=== PATIENT | female | born 1985 | race Hispanic/Latino ===

== ENCOUNTER 2017-08-26 11:08 | Emergency (ER) | payer OTHER ==
[2017-08-26 11:08] VITALS: BMI 28.7
[2017-08-26 11:13] VITALS: O2SAT 99
[2017-08-26] MEDS ORDERED: Sodium Chloride 0.9% 1,000 ML IV ONE (11:33)
--- NOTE | 2017-08-26 11:49 | C.PDOC ---
History Of Present Illness 32 year old female presents to the ED complaining of dizziness that began today. Of note, patient is currently fasting. States today just prior to arrival , she began to feel very dizzy and came in for further evaluation. Denies any associated syncopal episode or fall. She otherwise denies any nausea, vomiting, chest pain, SOB, weakness, numbness, or lower extremity swelling. Time Seen by Provider: 08/26/17 11:21 Chief Complaint (Nursing): Dizziness/Lightheaded History Per: Patient History/Exam Limitations: no limitations Onset/Duration Of Symptoms: Hrs Current Symptoms Are (Timing): Still Present Past Medical History Reviewed: Historical Data, Nursing Documentation, Vital Signs Vital Signs: Last Vital Signs Temp 97.5 F L 08/26/17 12:58 Pulse 62 08/26/17 12:58 Resp 16 08/26/17 12:58 BP 101/68 08/26/17 12:58 Pulse Ox 99 08/26/17 12:58 - Medical History PMH: No Chronic Diseases Surgical History: No Surg Hx - [facility] Procedures DELIVERY OF PRODUCTS OF CONCEPTION, EXTERNAL APPROACH (06/20/15) Family History: States: No Known Family Hx - Social History Hx Alcohol Use: No Hx Substance Use: No Review Of Systems Except As Marked, All Systems Reviewed And Found Negative. Cardiovascular: Negative for: Chest Pain Respiratory: Negative for: Shortness of Breath Gastrointestinal: Negative for: Nausea, Vomiting Musculoskeletal: Negative for: Leg Pain (or swelling) Neurological: Positive for: Dizziness. Negative for: Weakness, Numbness Physical Exam - Physical Exam Appears: Well, Non-toxic, No Acute Distress Skin: Normal Color, Warm, Dry Head: Atraumatic, Normacephalic Eye(s): bilateral: Normal Inspection, PERRL, EOMI Nose: Normal Neck: Normal ROM, Supple Chest: Symmetrical Cardiovascular: Rhythm Regular, No Murmur Respiratory: Normal Breath Sounds, No Accessory Muscle Use Gastrointestinal/Abdominal: Soft, No Tenderness, No Distention Back: Normal Inspection, No Vertebral Tenderness Extremity: Bilateral: Atraumatic, Normal Color And Temperature, Normal ROM Pulses: Left Dorsalis Pedis: Normal, Right Dorsalis Pedis: Normal Neurological/Psych: Oriented x3, Normal Speech, Normal Cranial Nerves, Normal Motor, Normal Sensation, Other (Non-focal exam) Gait: Steady ED Course And Treatment - Laboratory Results Result Diagrams: 08/26/17 12:00 08/26/17 12:00 Urine POC: Negative ECG: Interpreted By Me ECG Rhythm: Sinus Rhythm ECG Interpretation: Normal Rate From EC O2 Sat by Pulse Oximetry: 99 (RA) Pulse Ox Interpretation: Normal Progress Note: Treated with IVF NSS and reglan. On re-evaluation lungs clear abdomen soft. Discharged ambulating with steady gait, feeling better Reassessment Condition: Improved Medical Decision Making Medical Decision Making: Initial Plan: --Labs --Reglan 10 mg IV --IV fluids 12:52 On reevaluation, patient reports improvement after medication given. Patient is stable for d/c home. Advised to follow up with PMD for further evaluation. Disposition Counseled Patient/Family Regarding: Studies Performed, Diagnosis, Need For Followup - Disposition Referrals: [facility] [Outside] [facility] [Outside] Disposition: HOME/ ROUTINE Disposition Time: 13:00 Condition: STABLE Additional Instructions: Follow up with clinic or PMD for further evaluation Instructions: Vertigo (a Type of Dizziness) Forms: [facility] (Scottish) - Clinical Impression Clinical Impression: Dizziness - PA / PIE BAKER / Resident Statement MD/DO has reviewed & agrees with the documentation as recorded. - Scribe Statement The provider has reviewed the documentation as recorded by the Scribe (Viviana Peters) All medical record entries made by the Scribe were at my direction and personally dictated by me. I have reviewed the chart and agree that the record accurately reflects my personal performance of the history, physical exam, medical decision making, and the department course for this patient. I have also personally directed, reviewed, and agree with the discharge instructions and disposition.
[2017-08-26 12:09] LABS: BASO # 0.1 K/uL (0.0-0.2); BASO % 0.8 % (0.0-2.0); EOS # 0.1 K/uL (0.0-0.7); EOS % 0.7 % (0.0-4.0); HEMOGLOBIN 11.7 g/dL (11.0-16.0); LYMPH % 29.7 % (20.0-40.0); MEAN CORPUSCULAR HEMOGLOBIN 29.6 pg (27.0-31.0); MEAN CORPUSCULAR HGB CONC 34.2 g/dL (33.0-37.0); MONO # 0.4 K/uL (0.0-0.8); MONO % 6.4 % (0.0-10.0); NEUT # 4.3 K/uL (1.8-7.0); NEUT % 62.4 % (50.0-75.0); NRBC % 0.1 % (0.0-2.0); RBC 3.95 Mil/uL (3.80-5.20); WHITE BLOOD COUNT 6.9 K/uL (4.8-10.8)
[2017-08-26 12:10] LABS: MEAN CELL VOLUME 86.7 fL (81.0-99.0)
[2017-08-26 12:17] LABS: HCG,QUALITATIVE URINE NEGATIVE (NEGATIVE)
[2017-08-26 12:32] LABS: ALB/GLOB RATIO 1.2 (1.0-2.1); ALT/SGPT 14 U/L (9-52); AST/SGOT 18 U/L (14-36); BLOOD UREA NITROGEN 12 mg/dL (7-17); GFR AFRICAN-AMERICAN > 60; GFR NON-AFRICAN AMERICAN > 60; LIPASE 86 U/L (23-300)
[2017-08-26 12:37] LABS: SQUAMOUS EPITHIAL 3 /hpf (0-5); URINE BACTERIA RARE (<OCC); URINE BILIRUBIN NEGATIVE (NEGATIVE); URINE BLOOD 1+ (NEGATIVE); URINE CALCIUM OXALATE CRYSTALS FEW /hpf (<OCC); URINE CLARITY Hazy (Clear); URINE COLOR Yellow (YELLOW); URINE GLUCOSE (UA) NORMAL (Normal); URINE LEUKOCYTE ESTERASE NEG Leu/uL (Negative); URINE PROTEIN NEGATIVE (NEGATIVE); URINE UROBILINOGEN NORMAL mg/dL (0.2-1.0)
[2017-08-26 12:59] VITALS: BP 101/68; PULSE 62; RESP 16; TEMP 97.5
--- NOTE | 2017-08-27 19:40 | CARD ---
APPROVED REPORT EKG Measurement Heart [id number] <Conclusion> Normal sinus rhythm Normal ECG
== END 2017-08-26 13:07 | disposition home or self-care (01) ==
LOC: C.ER 11:08
DX: R42 Dizziness and giddiness (principal)
CPT/HCPCS: 80053; 81001; 82948; 83690; 84703; 85025; 93005; 96361; 96374; 99285; J2765; J7030